=== PATIENT | female | born 1985 | race Caucasian/White ===

== ENCOUNTER 2017-03-14 16:02 | Emergency (ER) | payer SELFPAY | END 2017-03-14 18:31 | disposition home or self-care (01) | LOC: FER 16:02 | DX: S63.602A Unspecified sprain of left thumb, initial encounter (principal); G43.909 Migraine, unspecified, not intractable, without status migrainosus; Z79.899 Other long term (current) drug therapy; W18.30XA Fall on same level, unspecified, initial encounter; Y99.0 Civilian activity done for income or pay | CPT/HCPCS: 73130; 99283 ==

== ENCOUNTER 2021-01-05 20:43 | Emergency (ER) | payer OTHER ==
[~2021-01-05 20:43] MED LIST: ADVIL200 M1 PO; ALLEGRA ALLERG180 MG PO; BACLOFEN10 MG PO; CALCIUM600 MG PO; CELECOXIB200 MG PO; CERTAGEN1 EACH PO; DULOXETINE HCL30 MG PO; EXCEDRIN EXTRA1 EACH PO; PERCOCET 5-3251 EACH PO; PRILOSEC20 MG PO; PROZAC20 MG PO; RIZATRIPTAN10 MG PO; SINGULAIR10 MG PO; TOPIRAMATE50 MG PO; VICODIN 10/3251 EACH PO; ZOFRAN4 MG PO; [UNRECOGNIZED DRUG - OTHER] PO
[2021-01-05 21:49] LABS: BASOPHIL 0.8 % (0-2); EOSINOPHIL 1.5 % (0-5); HCT 39.3 % (37.0-47.0); HGB 12.3 g/dl (12.5-16.0); LYMPHOCYTE 20.6 % (15-48); MCH 26.3 pg (25.0-31.0); MCHC 31.3 g/dL (32.0-36.0); MONOCYTE 7.2 % (0-12); MPV 10.2 fL (6.0-9.5); NEUTROPHIL 69.4 % (41-80); NRBC 0; PLT 479 K/uL (150-400); RBC 4.68 M/uL (4.20-5.40); RDW 14.8 % (11.5-14.0); WBC 17.5 K/uL (4.0-10.5)
[2021-01-05 21:50] LABS: BILIRUBIN 3+ mg/dL (NEGATIVE); BLOOD 1+ Ery/uL (NEGATIVE); CLARITY CLEAR (CLEAR); COLOR YELLOW (YELLOW); GLUCOSE (U) 2+ mg/dL (NORMAL); LEUKOCYTES NEGATIVE Leu/uL (NEGATIVE); NITRITE NEGATIVE (NEGATIVE); PROTEIN TRACE (LOW) mg/dL (NEGATIVE); SPECIFIC GRAVITY >=1.030 (1.001-1.030); UROBILINOGEN 0.2 mg/dL (0.2-1.0); pH 5.5 (5.0-9.0)
[2021-01-05 22:02] LABS: BACTERIA 1+; MUCOUS TRACE; URINARY RBC RARE; YEAST PRESENT
[2021-01-05 22:09] LABS: BILIRUBIN - TOTAL 0.4 mg/dL (0.2-1.0); BUN/CREAT RATIO (CALC) 13.2 RATIO; CREATININE 0.68 mg/dL (0.51-0.95); GLOBULIN (CALCULATION) 4.5 g/dL; POTASSIUM 3.5 mmol/L (3.5-5.1); TOTAL PROTEIN 7.5 g/dL (6.4-8.2)
[2021-01-05 22:16] LABS: LACTIC ACID 1.7 mmol/L (0.4-1.9)
[2021-01-06] MEDS ORDERED: ONDANSETRON ODT4 MG SL (00:28)
== END 2021-01-06 00:39 | disposition home or self-care (01) ==
LOC: FER 20:43
PROVIDERS: Emergency Medicine Emergency Medical Services
DX: K62.5 Hemorrhage of anus and rectum (principal); R11.0 Nausea; D72.829 Elevated white blood cell count, unspecified; K76.0 Fatty (change of) liver, not elsewhere classified; D73.4 Cyst of spleen; Z88.1 Allergy status to other antibiotic agents
CPT/HCPCS: 36415; 80053; 81001; 83605; 83690; 84145; 84484; 85025; 87339; J1885; J2405; J7030; Q9967